=== PATIENT | female | born 1955 | race Caucasian/White ===

== ENCOUNTER 2019-03-16 07:28 | Day surgery (SDC) | payer MEDICARE, OTHER, SELFPAY ==
[2019-03-16 07:43] VITALS: BP 151/63; PULSE 59; RESP 16; TEMP 36.1; O2SAT 100; BMI 37.3
[2019-03-16 08:01] LABS: Bedside Glucose 102 mg/dL (70-110)
[2019-03-16] MEDS: Oxymetazoline 0.05% 1 SPRAY SPRAY.BTL 15 SPRAY (09:07)
--- NOTE | 2019-03-16 09:14 | PCM.OPRPT ---
Problem List (1) Chronic serous otitis media of right ear Status: Chronic (2) Disorder of right eustachian tube Status: Acute Report of Operation Date of Procedure: 03/16/19 Pre-Operative Diagnosis: Chronic serous otitis media, right Post-Operative Diagnosis: Same Surgery/Procedure Performed:: Right T-tube placement Description of Surgical Findings:: Nataliia is a 63-year-old female presents for evaluation of chronic right serous middle ear effusion. This is failed to resolve despite observation and resulted significant decrease in hearing. Placement of a T-type tympanostomy tube given history of this previously was offered and she was agreeable to proceed. The risks, alternatives, potential complications, and benefits were discussed at length and any questions answered to the patient and/or caregiver's satisfaction. Witnessed informed consent was obtained in the office, and the patient and/or caregiver was agreeable to proceed. Procedure went as follows: The patient was identified in the preoperative holding and brought to the operating room, and placed under general anesthesia. When appropriate anesthesia was obtained, the operative microscope was brought into the field and beginning on the right side the external auditory canal and tympanic membrane visualized. This is noted to be with serous effusion. A myringotomy was then placed in the anteroinferior portion the tympanic membrane and Allison T-tube placed followed by oxymetazoline drops. The patient was then returned to anesthesia, revived and returned to recovery without complication. Type of Anesthesia:: MAC Anesthesiologist: Guilherme Fleming Special Medications: none Specimen's removed: none Drains: none Estimated Blood Loss (mL): 0 mL Fluids Replaced: 100 mL Grafts/Implants Used: T-tube - Complications none - Admit VTE Documentation VTE Present on Admission: No VTE Mechan Device Prophylaxis: None VTE Pharm Prophylaxis ordered?: No Reason prophylaxis not ordered:: Procedure Not Indicated
--- NOTE | 2019-03-16 09:19 | DCINST_ITS ---
Discharge Diet: No Restrictions Discharge Activity: Return to Normal Activity Call your doctor if your incision/area has: Continuous Slow Oozing Call your doctor if you observe: Uncontrolled pain Allergies/Adverse Reactions: Allergies metformin Adverse Reaction (Verified 03/09/19 12:06) Diarrhea Ivdyzsy-Csc-Nlp Reductase Inhibitor Adverse Reaction (Verified 03/09/19 12:06) Other Medications to take at Discharge Aspirin [Aspir 81] 81 mg PO DAILY 03/09/19 Clopidogrel Bisulfate [Plavix] 75 mg PO DAILY 03/09/19 Insulin Human 70/30 [Novolog Mix 70-30 Flexpen Syrn] 50 units SC BIDCM 03/09/19 Lisinopril [Zestril] 2.5 mg PO DAILY 03/09/19 Metoprolol Tartrate [Lopressor (Beta Yonathan)] 25 mg PO BID 03/09/19 RX: Nitroglycerin 0.4 mg SL PRN PRN 03/09/19 Rosuvastatin Calcium [Crestor] 5 mg PO QHS 03/09/19 Primary Care Physician: [facility] Doctor,Out of [Primary Care Provider] - Test Results: Test results from this visit will be discussed in further detail at your follow- up appointment, if applicable. Please Follow Up With: Dinesh Chavez MD When: 2 weeks
[2019-03-16 09:20] VITALS: BP 114/65; BP 121/60; BP 151/63; PULSE 58; PULSE 59; RESP 16; TEMP 36.7; O2SAT 96; O2SAT 97
[2019-03-16 09:25] VITALS: BP 131/59; BP 151/63; PULSE 59; RESP 16; O2SAT 96
[2019-03-16 09:30] VITALS: BP 119/59; BP 151/63; PULSE 57; RESP 16; O2SAT 94
[2019-03-16 09:35] VITALS: BP 124/62; BP 151/63; PULSE 56; RESP 16; TEMP 36.7; O2SAT 96
[2019-03-16 09:55] VITALS: BP 151/63
== END 2019-03-16 09:56 | disposition home or self-care (01) ==
LOC: SDC 07:30 → AC 07:32
PROVIDERS: Referring Provider Otolaryngology; Visit Provider Otolaryngology
PROC: (CPT 69436; principal; 2019-03-16 08:50)
DX: H65.21 Chronic serous otitis media, right ear (principal); H69.91 Unspecified Eustachian tube disorder, right ear; J35.3 Hypertrophy of tonsils with hypertrophy of adenoids; E11.9 Type 2 diabetes mellitus without complications; I10 Essential (primary) hypertension; E78.5 Hyperlipidemia, unspecified; I25.2 Old myocardial infarction; F17.200 Nicotine dependence, unspecified, uncomplicated; Z79.4 Long term (current) use of insulin; Z79.02 Long term (current) use of antithrombotics/antiplatelets; Z79.82 Long term (current) use of aspirin; Z79.899 Other long term (current) drug therapy
CPT/HCPCS: 69436; 82962; J7120; J2405